=== PATIENT | female | born 1950 | race Caucasian/White ===

== ENCOUNTER 2021-02-24 07:43 | Day surgery (SDCO) | payer OTHER ==
[~2021-02-24] VITALS: Ht 163 cm; Wt 76.7 kg
[~2021-02-24 07:43] MED LIST: AMLODIPINE-BEN1 EAC2 PO; CLONAZEPAM2 MG PO; CYTOMEL25 MCG PO; DESVENLAFAXINE50 MG PO; FOLIC ACID1 MG PO; MAG-OXIDE 400M400 MG PO; NORCO 5-325 TA1 EACH PO; PHENERGAN25 M1 PO; PRILOSEC20 MG PO; REFRESH CLASSI1 EACH OS; SYNTHROID50 MCG PO; TRIAMTERENE-HC1 EAC1 PO; UROCIT-K10 MEQ PO; VITAMIN D3125 MCG PO
--- NOTE | 2021-02-24 14:25 | NUR ---
PT. REQUESTED [facility]. INITIAL INFORAMTION SEN TO [facility]. ADVISED ANNE MARIE THAT [facility] HAS SUSPENDED PRE AUTH. 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
[2021-02-25 05:36] LABS: BASOPHIL 0.1 % (0-2); EOSINOPHIL 0 % (0-7); HCT 26.2 % (37.0-47.0); HGB 8.9 g/dl (12.5-16.0); LYMPHOCYTE 4.9 % (15-48); MCH 27.8 pg (25.0-31.0); MCV 81.9 fL (78.0-100.0); MONOCYTE 0.7 % (0-12); NRBC 0; PLT 261 K/uL (150-400); RDW 12.1 % (11.5-14.0)
[2021-02-25 05:39] LABS: NEUTROPHIL 93.6 % (41-80)
[2021-02-25 05:55] LABS: BUN/CREAT RATIO (CALC) 15.7 RATIO; CREATININE 1.08 mg/dL (0.51-0.95); POTASSIUM 5.3 mmol/L (3.5-5.1)
[2021-02-25 09:01] LABS: BUN/CREAT RATIO (CALC) 17.8 RATIO; CREATININE 1.01 mg/dL (0.51-0.95); POTASSIUM 4.6 mmol/L (3.5-5.1)
[2021-02-26 06:18] LABS: HCT 23.7 % (37.0-47.0); HGB 8.3 g/dl (12.5-16.0); MCH 28.3 pg (25.0-31.0); MCV 80.9 fL (78.0-100.0); MPV 9.1 fL (6.0-9.5); RBC 2.93 M/uL (4.20-5.40); RDW 12.4 % (11.5-14.0); WBC 17.6 K/uL (4.0-10.5)
[2021-02-26 06:43] LABS: BUN/CREAT RATIO (CALC) 16.5 RATIO; CREATININE 1.03 mg/dL (0.51-0.95); POTASSIUM 4.7 mmol/L (3.5-5.1)
[2021-02-26 15:20] LABS: BUN/CREAT RATIO (CALC) 15.8 RATIO; CREATININE 1.14 mg/dL (0.51-0.95); POTASSIUM 4.4 mmol/L (3.5-5.1)
[2021-02-26 19:21] LABS: BUN/CREAT RATIO (CALC) 16.5 RATIO; CREATININE 1.09 mg/dL (0.51-0.95); POTASSIUM 4.9 mmol/L (3.5-5.1)
[2021-02-26 22:57] LABS: BUN/CREAT RATIO (CALC) 15.9 RATIO; CREATININE 1.07 mg/dL (0.51-0.95); POTASSIUM 4.8 mmol/L (3.5-5.1)
[2021-02-27 02:57] LABS: HCT 22.8 % (37.0-47.0); HGB 7.9 g/dl (12.5-16.0); MCH 28.4 pg (25.0-31.0); MCHC 34.6 g/dL (32.0-36.0); MPV 9.4 fL (6.0-9.5); RBC 2.78 M/uL (4.20-5.40); RDW 12.6 % (11.5-14.0); WBC 14.6 K/uL (4.0-10.5)
[2021-02-27 03:01] LABS: POTASSIUM 4.5 mmol/L (3.5-5.1)
[2021-02-27 07:27] LABS: BUN/CREAT RATIO (CALC) 14.4 RATIO; CREATININE 1.04 mg/dL (0.51-0.95); POTASSIUM 4.3 mmol/L (3.5-5.1)
[2021-02-27] MEDS ORDERED: STIMULANT LAXA1 EACH PO (11:07)
[2021-02-27] MEDS ORDERED: XARELTO10 MG PO (11:07)
[2021-02-27] MEDS ORDERED: NORCO 5-325 TA1 EACH PO (11:07)
[2021-02-27] MEDS ORDERED: NORVASC5 MG PO (11:07)
[2021-02-27] MEDS ORDERED: MILK OF MA400 MG/5 M PO (11:07)
[2021-02-27] MEDS ORDERED: FEOSOL325 MG PO (11:07)
[2021-02-27] MEDS ORDERED: LAXATIVE SUPPOS10 MG PR (11:07)
[2021-02-27] MEDS ORDERED: SODIUM CHLORIDE1 GM PO (11:07)
[2021-02-27] MEDS ORDERED: DULCOLAX5 MG PO (11:07)
[2021-02-27] MEDS ORDERED: TAB-A-VITE TA400 MC1 PO (11:07)
[2021-02-27] MEDS ORDERED: ZOFRAN4 M1 PO (11:07)
--- NOTE | 2021-02-27 11:18 | NUR ---
PT WILL BE TRANSFERRING TO THE [facility] IN [place]. THE REPORT NUMBER IS [id number] EXTENSION 246 FAX NUMBER FOR DC SUMMARY AND COPY OF COVID RESULTS IS [phone]
--- NOTE | 2021-02-27 11:42 | NUR ---
MET WITH PT AND DAUGHTER THIS DATE TO CONFIRM ADMISSION TO [facility] IN [facility]. THE DAUGHTER WILL BE TRANSPORTING PT. TO THE FACILITY. ADVISED PT. THAT IF SHE REQUIRES ANY DME WHEN SHE D/C FROM [facility] THEY WILL HAVE IT ORDERED FOR HER. PT. AND DAUGHTER EXPRESS UNDERSTANDING.
== END 2021-02-27 15:17 | disposition home or self-care (01) ==
LOC: FAS 07:43 → FMS 02-26 16:47 → FAS 02-26 21:57 → FMS 02-26 21:58
PROVIDERS: Family Medicine; Nurse Practitioner Adult Health; ADMIT Legal Medicine
DX: M17.11 Unilateral primary osteoarthritis, right knee (principal); M65.861 Other synovitis and tenosynovitis, right lower leg; G89.18 Other acute postprocedural pain; E87.1 Hypo-osmolality and hyponatremia; H81.09 Meniere's disease, unspecified ear; I10 Essential (primary) hypertension; F41.9 Anxiety disorder, unspecified; F32.9 Major depressive disorder, single episode, unspecified; K21.9 Gastro-esophageal reflux disease without esophagitis; K58.9 Irritable bowel syndrome, unspecified; E89.0 Postprocedural hypothyroidism; Z88.0 Allergy status to penicillin; Z88.2 Allergy status to sulfonamides; Z88.5 Allergy status to narcotic agent; Z20.822 Contact with and (suspected) exposure to COVID-19
CPT/HCPCS: 36415; 73560; 80048; 83930; 85025; 86850; 86900; 86901; 94010; 97110; 97162; 97166; 97530; 97530-GP; 97535; C1713; C1776; G0378; J0171; J1100; J1885; J2250; J2270; J2405; J2704; J2795; J3010; J7120; U0002